=== PATIENT | male | born 2000 | race Caucasian/White ===

== ENCOUNTER 2020-03-19 15:00 | Inpatient (IN) | payer MEDICAID ==
[~2020-03-19] VITALS: Ht 170.2 cm; Wt 80.3 kg
[2020-03-19 15:05] VITALS: BP 120/52
--- NOTE | 2020-03-19 15:12 | NUR ---
PT AMBULATED TO BED 6 WITH RN
--- NOTE | 2020-03-19 15:21 | NUR ---
Telepsychiatry consultation ordered as requested by Dr. Calixto.
--- NOTE | 2020-03-19 15:45 | NUR ---
19 Y/O BIB BROTHER C/O SUICIDAL IDEATION . PT STATES HE TOOK 3 XANAX , 2 MG EACH , THAT HE GOT OFF THE STREETN. PT DENIES SI / HI . PT STATES HE WASN'T TRYING TO HURT HIMSELF , "HE WAS TRYING TO [employer]." PT STATES HE USUALLY TAKES 1 - 2 XANAX A DAY . PT STATES HE DOESN'T HAVE A RX BUT GETS HIS XANAX ON THE STREET. PT DENIES DRUG USE OTHER THAN XANAX AND STATES HE DRINKS ALCOHOL OCCASIONALLY. PT STATES HE HAS DEPRESSION AND ANXIETY AND FEELS LIKE XANAX IS THE ONLY THING THAT HELPS HIM FEEL BETTER. PT RESTING IN BED AT LOWEST POSITION , SIDE RAILS X2 FOR PT SAFETY. SI PRECAUTIONS IN PLACE FOR PT SAFETY. PMH: NONE RX: NONE
--- NOTE | 2020-03-19 15:50 | NUR ---
PT DROWSY , AROUSABLE BY PAINFUL STIMULATION. PT CONNECTED TO BEDSIDE TANNING SOLUTION MAKER AND PULSE OX.
--- NOTE | 2020-03-19 16:04 | NUR ---
PT VERY DROWSY AND AROUSABLE TO PAIN. PT PLACED ON BEDSIDE CARDIAC AT THIS TIME. LAB AT BEDSIDE.
--- NOTE | 2020-03-19 16:08 | NUR ---
PT UNABLE TO PROVIDE URINE AT THIS TIME
--- NOTE | 2020-03-19 16:10 | NUR ---
PT PROVIDED WATER.
--- NOTE | 2020-03-19 16:15 | NUR ---
Psychiatrist evaluating patient via telepsychiatry.
[2020-03-19 16:19] LABS: BASOPHILS % (AUTO) 0.5 % (0.0-2.0); EOSINOPHILS # (AUTO) 0.1 K/uL (0-0.4); EOSINOPHILS % (AUTO) 0.8 % (0.0-4.0); HEMATOCRIT 44.5 % (36-52); HEMOGLOBIN 15.5 g/dL (12.0-18.0); LYMPHOCYTES # (AUTO) 1.8 K/uL (2.0-11.5); MEAN CORPUSCULAR HEMOGLOBIN 31 pg (27-31); MEAN CORPUSCULAR HGB CONC 35 g/dL (33-37); MEAN CORPUSCULAR VOLUME 88.5 fL (80-94); MONOCYTES # (AUTO) 0.7 K/uL (0.8-1.0); NEUTROPHILS # (AUTO) 7.4 K/uL (1.8-7.7); NEUTROPHILS % (AUTO) 73.7 % (42.2-75.2); PLATELET COUNT (AUTO) 334 K/uL (140-450); RED BLOOD CELL COUNT(AUTO) 5.03 MIL/uL (4.20-6.10); RED CELL DISTRIBUTION WIDTH 12.7 % (11.6-13.7)
[2020-03-19 16:45] LABS: ALBUMIN 3.8 g/dL (3.4-5.0); ANION GAP 12.6 (8-16); ASPARTATE AMINOTRANSFERASE 17 U/L (15-37); CARBON DIOXIDE 26.4 mmol/L (21-32); CHLORIDE 108 mmol/L (98-107); CREATININE 0.8 mg/dL (0.6-1.3); GFR ARICAN-AMERICAN 157 mL/min (>90); GLUCOSE 86 mg/dL (74-106); SODIUM SERUM 143 mmol/L (136-145); TOTAL BILIRUBIN 0.5 mg/dL (0.0-1.0); UREA NITROGEN, BLOOD 6 mg/dL (7-18)
[2020-03-19 16:48] LABS: ACETAMINOPHEN < 0.5 ug/ml (10-30); SALICYLATE < 2.8 mg/dL (2.8-20.0)
--- NOTE | 2020-03-19 16:59 | NUR ---
PROVIDED PT WITH SANDWICH AND JUICE AT BEDSIDE
[2020-03-19 17:37] LABS: BARBITURATE, URINE NEGATIVE ng/ml (NEG <=200); BENZODIAZEPINE, URINE POSITIVE ng/mL (NEG <=200); CANNABINOID, URINE NEGATIVE ng/mL (NEG <=50); COCAINE, URINE NEGATIVE ng/mL (NEG <=300); OPIATE, URINE NEGATIVE ng/mL (NEG <=2000); PHENCYCLIDINE SCREEN,URINE NEGATIVE ng/mL (NEG <=25)
--- NOTE | 2020-03-19 17:45 | NUR ---
[place] [facility] AT BEDSIDE
--- NOTE | 2020-03-19 18:03 | NUR ---
ERMD AT BEDSIDE FOR MSE.
--- NOTE | 2020-03-19 18:12 | NUR ---
PT SLEEPING IN BED AT LOWEST POSITION, HOB ELEVATED , SIDE RAILS X2 FOR SAFETY. SI PRECAUTIONS IN PLACE FOR PT SAFETY . SITTER AT BEDSIDE . PT AROUSABLE BY VERBAL STIMULATION.
--- NOTE | 2020-03-19 19:11 | NUR ---
REPORT GIVEN TO ELIAS MAY FOR TRANSFER OF CARE.
--- NOTE | 2020-03-19 19:12 | NUR ---
RECIEVED REPORT FROM ELIAS KENT. TRANSFER OF CARE AT THIS TIME.
--- NOTE | 2020-03-19 19:28 | NUR ---
PATIENT SLEEPING COMFORTABLY IN BED. EQUAL CHEST RISE AND FALL. BED LOCKED AND IN LOWEST POSITION. SI SAFETY MEASURES IN PLACE. SITTER AT BEDSIDE.
--- NOTE | 2020-03-19 20:20 | NUR ---
ALERT TO NAME, PROVIDED DINNER TRAY.
[2020-03-19] MEDS ORDERED: ONDANSETRON 4 MG/2 ML VIAL IVP PRN (20:45)
[2020-03-19] MEDS ORDERED: ACETAMINOPHEN 325 MG TAB PO PRN (20:45)
--- NOTE | 2020-03-19 20:55 | NUR ---
X-Ray at bedside.
[2020-03-19 21:11] LABS: PROTHROMBIN TIME 10.4 secs (10.8-13.4)
--- NOTE | 2020-03-19 21:18 | NUR ---
Patient will be admitted to care of [facility]. Admited to [facility]. Will go to room 109 A. Belongings list completed. Report to ELIAS GARCIA.
[2020-03-19 21:19] LABS: MAGNESIUM 1.9 mg/dL (1.8-2.4); PHOSPHORUS 3.4 mg/dL (2.5-4.9); THYROID STIMULATING HORMONE 0.17 uIU/mL (0.34-3.74)
[2020-03-19 21:20] VITALS: BP 117/65
--- NOTE | 2020-03-19 21:30 | NUR ---
PT ARRIVED VIA GURNEY ON TO UNIT AND WAS ESCORTED TO ROOM 109. PT AMBULATED TO BED A. PT IS AOX4 BUT DROWSY DUE TO TAKING OBTAINED 3-4 XANAX AND ALSO IS POSITIVE FOR BENZODIAZEPINES. PT HAS NO PMH. PT IS LETHARGIC BUT AROUSABLE TO NAME AND LIGHT TOUCH. BED LOW ALL SUICIDE PRECAUTIONS IN PLACE INCLUDING 1:1 SITTER. BEDSIDE REPORT GIVEN BY LALO GRIFFIN ER NURSE.
--- NOTE | 2020-03-19 21:45 | NUR ---
PT IN BED NO C/O VOICED V/S FOLLOWS: T 97.8 P 80 R 18 B/P 117/65 02 98% ON ROOM AIR. PT SKIN INTACT NO IV SITE AT THIS TIME, WILL PROVIDE AN IV SITE PER POLICY.
--- NOTE | 2020-03-19 22:00 | NUR ---
PT IN BED AROUSABLE TO NAME AND LIGHT TOUCH. MRSA SWAB DONE FOR ADMISSION. PT ALSO COOPERATIVE AND RESPECTFUL BUT GUARDED. PT DID ALLOWED PRIMARY NURSE TO PUT AN IV SITE ON LEFT F/A 22G. NO MEDS OR NO FLUIDS ORDERED AT THIS TIME AND IV IS SALINE LOCKED. PT HAD NO C/O VOICED AT THIS TIME. ALL SUICIDE PRECAUTIONS IN PLACE INCLUDING 1:1 SITTER.
--- NOTE | 2020-03-20 | NUR ---
PT SLEEPING BUT AROUSABLE TO NAME AND LIGHT TOUCH. V/S FOLLOWS: T 97.4 P 58 R 20 B/P 92/48 02 98%. PT SLEEPING NO S/S OF PAIN OR DISTRESS NOTED. ALL SUICIDE PRECAUTIONS IN PLACE AND 1:1 SITTER AT BEDSIDE.
[2020-03-20 04:00] VITALS: BP 107/57
--- NOTE | 2020-03-20 04:00 | NUR ---
PT IN BED SLEEPING BUT AROUSABLE TO NAME AND LIGHT TOUCH V/S FOLLOWS: T 97.4 P 45 R 20 B/P 107/57 02 99%. SUICIDED PRECAUTIONS IN PLACE. WILL RECHECK PULSE RATE LATER. 1 :1 SITTER AT BEDSIDE.
[2020-03-20] MEDS: LORazepam 1 MG TAB PO SCH ×3 (05:00→20:18)
--- NOTE | 2020-03-20 05:30 | NUR ---
PT IN BED RESTING WITH EYES CLOSED BUT AROUSABLE TO NAME AND LIGHT TOUCH. PULSE RECHECK IS 51. SCHEDULED ATIVAN HELD DUE TO BRADYCARDIA AND PT CALM DEMEANOR. ALL 1:[address];[place] INCLUDING 1:1 SITTER.
[2020-03-20 06:27] LABS: BASOPHILS % (AUTO) 0.4 % (0.0-2.0); EOSINOPHILS # (AUTO) 0.2 K/uL (0-0.4); EOSINOPHILS % (AUTO) 2.5 % (0.0-4.0); HEMATOCRIT 43.8 % (36-52); HEMOGLOBIN 14.8 g/dL (12.0-18.0); LYMPHOCYTES # (AUTO) 2.5 K/uL (2.0-11.5); LYMPHOCYTES % (AUTO) 34.7 % (20.5-51.1); MEAN CORPUSCULAR HEMOGLOBIN 31 pg (27-31); MEAN CORPUSCULAR HGB CONC 34 g/dL (33-37); MEAN CORPUSCULAR VOLUME 90.3 fL (80-94); MONOCYTES # (AUTO) 0.6 K/uL (0.8-1.0); MONOCYTES % (AUTO) 8.5 % (1.7-9.3); NEUTROPHILS # (AUTO) 3.9 K/uL (1.8-7.7); NEUTROPHILS % (AUTO) 53.9 % (42.2-75.2); PLATELET COUNT (AUTO) 325 K/uL (140-450); RED BLOOD CELL COUNT(AUTO) 4.85 MIL/uL (4.20-6.10); RED CELL DISTRIBUTION WIDTH 12.5 % (11.6-13.7); WHITE BLOOD COUNT (AUTO) 7.2 K/uL (4.8-10.8)
[2020-03-20 07:10] LABS: MAGNESIUM 1.8 mg/dL (1.8-2.4)
[2020-03-20 07:29] LABS: ANION GAP 9.8 (8-16); POTASSIUM 3.8 mmol/L (3.5-5.1)
--- NOTE | 2020-03-20 07:59 | NUR ---
RECEIVED BEDSIDE REPORT FROM BANDSAW OPERATOR NURSE FOR CONTINUITY OF CARE. PT IS A&OX4, TO PERSON AND PLACE; ROMANIAN SPEAKING. PT IS RESTING IN BED R LATERAL, AROUSABLE TO VOICE. RESPIRATIONS ARE EVEN AND UNLABORED, BREATHING TO RA. SKIN COLOR APPROPRIATE FOR ETHNICITY. R FOREARM 22G IV, SALINE LOCK, IS PATENT AND INTACT. SAFETY MEASURES IN PLACE; BED IN LOW POSITION, SITTER AT BEDSIDE. NO ACUTE DISTRESS NOTED. WILL CONTINUE TO MONITOR.
[2020-03-20 08:00] VITALS: BP 99/57
--- NOTE | 2020-03-20 08:31 | NUR ---
RECIEVED REPORT FROM NOC SHIFT NO AVAIL BEDS AT THIS TIME WILL CONT TO MONITOR AND ASSIST IN PLACEMENT
[2020-03-20] MEDS ORDERED: THIAMINE 100 MG TAB PO SCH (09:00)
[2020-03-20] MEDS ORDERED: FOLIC ACID 1 MG TAB PO SCH (09:00)
[2020-03-20] MEDS ORDERED: MULTIVITAMIN 1 TAB PO SCH (09:00)
--- NOTE | 2020-03-20 09:13 | NUR ---
PATIENT HAS BEEN SCREENED AND CATEGORIZED LOW NUTRITION RISK. PATIENT WILL BE SEEN WITHIN 7 DAYS OF ADMISSION. 03/26/[address]
--- NOTE | 2020-03-20 09:55 | NUR ---
PT REFUSED SCHEDULED MEDICATIONS. NO ACUTE DISTRESS NOTED. SAFETY MEASURES IN PLACE. SITTER AT BEDSIDE. WILL CONTINUE TO MONITOR.
--- NOTE | 2020-03-20 11:04 | NUR ---
REHABILITATION CASE COORDINATOR NOTE: Basic Screen: Yes High Risk DC Screen [place]: PAU Michel Relationship: BROTHER Pre-Admission Living Arrangements: Lives with Other Prior ADL Independent Current Home Health Name/Tel: N/A Current DME/02 Name/Tel: N/A Current Hospice Name/Tel: N/A Current Dialysis Name/Tel: N/A Healthcare Decision Maker: Patient Advance Directive No Physician Orders for Life Sustaining Treatment Form No Patient/Family Have Educational Needs No Information Taught: Community Resources Person Taught: Patient Teaching Tools: Computer Generated Print Verbal Factors Affecting Learning: None Participation Level: Active Evaluation: Verbalizes Understanding Needs Additional Education: No Discipline: Case Mgt/Social Svcs Tentative Discharge Plan/Destination: Other Other: PSYCH FACILITY Will require assistance post discharge: No Referred to Early Childhood Education Worker: No Tentative Discharge Plan Summary: PATIENT IS A 19-YEAR-OLD MALE ADMITTED FOR SUICIDAL IDEATION. PATIENT HAS NO PERTINENT PMHX. PATIENT WAS ADMITTED FROM HOME. SW MET WITH PATIENT AT BEDSIDE TO VERIFY DEMOGRAPHICS. PER PATIENT, HE HAS BEEN STAYING AT [address] [place] [address]. PATIENT STATED THAT HE STAYS WITH DIFFERENT FRIENDS BUT PLANS TO GO TO THAT ADDRESS AFTER DISCHARGE. SW USED MOTIVATIONAL INTERVIEWING AND PROVIDED COUNSELING FOR PATIENT. PATIENT STATED THAT HE HAS NEVER FELT SUICIDAL BEFORE BUT LIFE STRESSORS HAD BECAME OVERWHELMING. PATIENT STATED THAT HE HAS NEVER EXPERIENCED MENTAL HEALTH ISSUES PRIOR. PATIENT REPORTED USING 2-3 2.0MG OF XANAX DAILY AND OCCASIONALLY USES METHAMPHETAMINES. PATIENT REPORTED USING METHAMPHETAMINES PRIOR TO HOSPITALIZATION. SW PROVIDED SUBSTANCE ABSUE RESOURCES AND MENTAL HEALTH RESOURCES. TENTATIVE DISCHARGE PLAN IS FOR PATIENT TO BE DISCHARGED TO PSYCHIATRIC FACILITY PENDING PSYCH CONSULT. SW WILL REMAIN AVAILABLE IF ANY ISSUES ARISE. Signature: HIPOLITO JAVIER Date: March 20, 2020 Time: 11:03
[2020-03-20 12:00] VITALS: BP 105/56
--- NOTE | 2020-03-20 12:51 | NUR ---
PT IS RESTING IN BED. AROUSABLE TO VOICE. NO ACUTE DISTRESS NOTED. SAFETY MEASURES IN PLACE. SITTER AT BEDSIDE. WILL CONTINUE TO MONITOR.
[2020-03-20 16:00] VITALS: BP 107/57
[2020-03-20] MEDS ORDERED: ESCITALOPRAM 20 MG TAB PO SCH (18:00)
--- NOTE | 2020-03-20 18:12 | NUR ---
SCHEDULED PO MEDS GIVEN. PT TOLERATED PO MED WELL. NO ACUTE DISTRESS NOTED. SITTER AT BEDSIDE. WILL CONTINUE TO MONITOR.
[2020-03-20] MEDS ORDERED: ESCI10TA PO (19:00)
--- NOTE | 2020-03-20 19:25 | NUR ---
ENDORSED TO BURGLAR ALARM INSTALLER NURSE FOR CONTINUITY OF CARE. PT IS IN STABLE CONDITION.
--- NOTE | 2020-03-20 19:26 | NUR ---
RECEIVED REPORT FROM DAYSSDFT NURSE. PT IN BED RESTING DENIES ANY PAIN OR DISCOMFORT. RESPIRATIONS EVEN AND UNLABORED. IV ACCESS ON R FA CLEAN AND INTACT. SALINE LOCKED. NO REQUESTS MADE AT THIS TIME. SITTER AT BEDSIDE WILL CONTINUE TO MONITOR.
[2020-03-20 19:31] VITALS: BP 123/61
[2020-03-20 20:00] VITALS: BP 126/61
--- NOTE | 2020-03-20 20:18 | NUR ---
SCHEDULED MEDS GIVEN ORDERED. PT NOT IN DISTRESS
--- NOTE | 2020-03-20 20:20 | NUR ---
DISCHARGE ORDERS RECEIVED. DISCHARGE DOCUMENTS SIGNED BY PATIENT. DISCHARGE TEACHINGS GIVEN. PT AMENABLE TO TEACHINGS. BELONGINGS AND DOCUMENTS GIVEN. IV REMOVED. PT CURRENTLY CHANGING INTO HIS OWN CLOTHES. SITTER AT BEDSIDE. PT AWAITING CAB FOR TRANSPORT.
--- NOTE | 2020-03-20 22:05 | NUR ---
CAB ARRIVED. PT TO BE TRANSPORTED TO GRANDMOTHER'S HOUSE. ID BAND REMOVED. PT WHEELED OUT TO LOBBY BY TETRYL DISSOLVER OPERATOR VIA WHEELCHAIR. PT IN STABLE CONDITION.
[2020-03-21] MEDS ORDERED: ESCITALOPRAM 20 MG TAB PO SCH (09:00)
== END 2020-03-20 22:05 | disposition home or self-care (01) | DRG 816 ==
LOC: MED 15:00 → MTU 20:43
PROVIDERS: ADMIT General Practice; ATTEND General Practice
DX: T51.91XA Toxic effect of unspecified alcohol, accidental (unintentional), initial encounter (principal); G92 Toxic encephalopathy; R45.851 Suicidal ideations; F32.9 Major depressive disorder, single episode, unspecified; F10.129 Alcohol abuse with intoxication, unspecified; Y90.9 Presence of alcohol in blood, level not specified; F19.10 Other psychoactive substance abuse, uncomplicated; F11.10 Opioid abuse, uncomplicated; Z59.0 Homelessness; Z81.8 Family history of other mental and behavioral disorders; Y92.89 Other specified places as the place of occurrence of the external cause
CPT/HCPCS: 36415; 71045; 80048; 80053; 80305; 83036; 83735; 83880; 84100; 84439; 84443; 84484; 85025; 85610; 85730; 87081; 99285; G0480; G0482; Q0092